=== PATIENT | female | born 1995 | race African-American/Black ===

== ENCOUNTER 2017-09-13 18:09 | Emergency (ER) | payer BC ==
[~2017-09-13] VITALS: Ht 167.6 cm; Wt 77.0 kg
[~2017-09-13 18:09] MED LIST: AMOXICILLIN500 MG PO; CORTISPORIN OTI10 ML AD; MEDDOSEPAK PO; ZOVIRAX400 MG PO
[2017-09-13] MEDS ORDERED: NAPROSYN500 MG PO (18:58)
[2017-09-13 19:05] VITALS: BP 112/69
== END 2017-09-13 19:05 | disposition home or self-care (01) | DRG 563 ==
LOC: ED 18:09
DX: S93.401A Sprain of unspecified ligament of right ankle, initial encounter (principal); M25.471 Effusion, right ankle; S20.412A Abrasion of left back wall of thorax, initial encounter; W17.89XA Other fall from one level to another, initial encounter; Y93.89 Activity, other specified; Y92.007 Garden or yard of unspecified non-institutional (private) residence as the place of occurrence of the external cause

== ENCOUNTER 2022-08-08 10:11 | Emergency (ER) | payer SELFPAY ==
[~2022-08-08] VITALS: Ht 167.6 cm; Wt 87.6 kg
[~2022-08-08 10:11] MED LIST changes: +NAPROSYN500 MG PO
[2022-08-08 11:26] VITALS: BP 127/83
[2022-08-08] MEDS ORDERED: ZITHROMAX500 MG PO (13:13)
[2022-08-08 13:36] VITALS: BP 127/83
== END 2022-08-08 13:37 | disposition home or self-care (01) | DRG 153 ==
LOC: ED 10:11
DX: J03.90 Acute tonsillitis, unspecified (principal)